=== PATIENT | female | born 1960 | race Caucasian/White ===

== ENCOUNTER 2018-05-29 17:41 | Inpatient (IN) | payer SELFPAY ==
[~2018-05-29] VITALS: Ht 152.4 cm; Wt 89.4 kg
[2018-05-29 18:50] VITALS: BP 129/78
[2018-05-29 20:00] VITALS: BP 129/78
[2018-05-29] MEDS ORDERED: METHIMAZOLE10 MG PO (20:34)
[2018-05-29] MEDS ORDERED: LEXAPRO10 MG PO (20:34)
[2018-05-29] MEDS ORDERED: GABAPENTIN100 MG PO (20:34)
[2018-05-29] MEDS ORDERED: VASOTEC10 M1 PO (20:34)
[2018-05-29] MEDS ORDERED: SODIUM CHLORIDE 0.9% 50ML 50 ML ONE (20:50)
[2018-05-29] MEDS ORDERED: SODIUM CHLORIDE 0.9% 250ML 250 ML ONE ×2 (20:51→22:02)
[2018-05-29] MEDS: CEFTRIAXONE SOD 1 GM VIAL IV SCH (21:00)
[2018-05-29] MEDS ORDERED: ACETAMINOPHEN 325 MG TAB PO PRN ×2 (21:45→22:00)
[2018-05-29] MEDS ORDERED: LORAZEPAM INJ 2 MG/ML VIAL IV PRN (21:45)
[2018-05-29] MEDS: ACETAMINOPHEN 325 MG TAB PO PRN (22:13)
[2018-05-29] MEDS: SODIUM CHLORIDE 0.9% 1000ML 1,000 ML IV SCH (22:25)
[2018-05-29] MEDS: ONDANSETRON HCL INJ 2 MG/ML VIAL IV PRN (22:25)
[2018-05-29] MEDS: MORPHINE SULFATE INJ 4 MG/ML INJ IV PRN (22:25)
[2018-05-29] MEDS: AZITHROMYCIN 500MG/NS 250 ML 250 ML IV SCH (22:28)
[2018-05-30] VITALS (8 sets, daily range): BP systolic 95–168; BP diastolic 52–80
[2018-05-30] MEDS: MORPHINE SULFATE INJ 4 MG/ML INJ IV PRN ×5 (02:35→21:21)
[2018-05-30] MEDS: ONDANSETRON HCL INJ 2 MG/ML VIAL IV PRN ×5 (02:38→21:21)
--- NOTE | 2018-05-30 05:45 | Diagnostic Imaging Report ---
EXAM: CHEST SINGLE (PORTABLE), AP 1 view INDICATION: Pneumonia COMPARISON: None FINDINGS: LINES/TUBES: None LUNGS: No consolidations or edema. PLEURA: No effusions or pneumothorax. HEART AND MEDIASTINUM: Normal size and contour. BONES AND SOFT TISSUES: No acute findings. IMPRESSION: No acute thoracic abnormality. Signed by: Dr. Mikayla Bray M.D. on 05/30/2018 5:42 AM
[2018-05-30 05:59] LABS: BASOPHILS % 0.2 % (0.0-1.0); HEMATOCRIT 25.6 % (34.2-44.1); LYMPHOCYTES % 18.5 % (18.0-39.1); MEAN CORPUSCULAR HGB CONC 35.2 g/dL (31-35); MEAN CORPUSCULAR VOLUME 85.3 fL (81-99); MONOCYTES # (AUTO) 0.3 (0.2-0.8); NEUTROPHILS # (AUTO) 4.1 (2.1-6.9); NEUTROPHILS % 74.9 % (38.7-80.0); PLATELET COUNT 124 x10e3/uL (140-360); RED CELL DISTRIBUTION WIDTH 12.6 % (11.7-14.4)
[2018-05-30 06:28] LABS: ALANINE AMINOTRANSFERASE 65 IU/L (0-55); ALBUMIN 2.5 g/dL (3.5-5.0); ALBUMIN/GLOBULIN RATIO 0.9 (0.8-2.0); ALKALINE PHOSPHATASE 99 IU/L (40-150); ANION GAP 13.5 mmol/L (8-16); BLOOD UREA NITROGEN 10 mg/dL (7-26); BUN/CREATININE RATIO 14 (6-25); CARBON DIOXIDE 26 mmol/L (22-29); CHLORIDE 99 mmol/L (98-107); CREATININE, SERUM 0.69 mg/dL (0.57-1.11); EST GLOMERULAR FILTRATION RATE > 60 ML/MIN (60-); GLUCOSE 121 mg/dL (74-118); POTASSIUM 3.5 mmol/L (3.5-5.1); SODIUM 135 mmol/L (136-145)
[2018-05-30] MEDS: ALBUTEROL/IPRATROPIUM 3 ML NEB NEB SCH ×4 (07:00→19:00)
[2018-05-30 07:36] LABS: BAND NEUTROPHILS % (MANUAL) 25 %; LYMPHOCYTES % (MANUAL) 11 % (19-48); MONOCYTES % (MANUAL) 6 % (3.4-9.0); NEUTROPHILS % (MANUAL) 56 % (40-74)
[2018-05-30 07:37] LABS: PLATELET ESTIMATE SLIGHTLY DECREASED; TOXIC GRANULATION MODERATE
[2018-05-30 07:39] LABS: ANISOCYTOSIS SLIGHT; PLATELET MORPHOLOGY COMMENT NORMAL; VACUOLE,WBC SLIGHT
[2018-05-30 07:52] LABS: RBC MORPHOLOGY COMMENT NORMAL
[2018-05-30] MEDS ORDERED: METHIMAZOLE 10 MG PO SCH (09:00)
[2018-05-30] MEDS: ESCITALOPRAM OXALATE 10 MG TAB PO SCH (09:29)
[2018-05-30] MEDS: METHIMAZOLE 5 MG TAB PO SCH (09:29)
[2018-05-30] MEDS: GABAPENTIN 100 MG CAP PO SCH (09:29)
[2018-05-30] MEDS: SODIUM CHLORIDE 0.9% 1000ML 1,000 ML IV SCH ×2 (09:30→21:21)
[2018-05-30] MEDS: ENALAPRIL MALEATE 10 MG TAB PO SCH ×2 (09:30→17:35)
[2018-05-30] MEDS: ACETAMINOPHEN 325 MG TAB PO PRN ×2 (09:45→22:49)
[2018-05-30] MEDS: AZITHROMYCIN 500MG/NS 250 ML 250 ML IV SCH (21:21)
[2018-05-31] VITALS (7 sets, daily range): BP systolic 98–169; BP diastolic 55–76
[2018-05-31] MEDS: MORPHINE SULFATE INJ 4 MG/ML INJ IV PRN ×5 (01:56→20:20)
[2018-05-31] MEDS: ONDANSETRON HCL INJ 2 MG/ML VIAL IV PRN ×5 (01:56→20:20)
[2018-05-31] MEDS: ALBUTEROL/IPRATROPIUM 3 ML NEB NEB SCH ×5 (06:40→23:20)
[2018-05-31] MEDS: SODIUM CHLORIDE 0.9% 1000ML 1,000 ML IV SCH ×3 (07:52→20:15)
[2018-05-31] MEDS: GABAPENTIN 100 MG CAP PO SCH (09:13)
[2018-05-31] MEDS: ESCITALOPRAM OXALATE 10 MG TAB PO SCH (09:13)
[2018-05-31] MEDS: METHIMAZOLE 5 MG TAB PO SCH (09:13)
[2018-05-31] MEDS: ENALAPRIL MALEATE 10 MG TAB PO SCH ×2 (09:14→17:00)
[2018-05-31] MEDS: ACETAMINOPHEN 325 MG TAB PO PRN (11:15)
--- NOTE | 2018-05-31 16:58 | Progress Note ---
DATE: INTERNAL MEDICINE PROGRESS NOTE SUBJECTIVE: Patient is complaining of fever. PHYSICAL EXAM VITAL SIGNS: Blood pressure 169/76, temperature 102.7, heart rate 131 per minute, respiratory rate 17 per minute, and oxygen saturation 95%. HEART: Regular rhythm. Normal S1 and S2 sounds. LUNGS: Clear bilaterally. ABDOMEN: Soft. LABORATORY DATA: On the blood work, we have BMP. Sodium 135, potassium 3.5, chloride 99, CO2 of 26, BUN 10, creatinine 0.69, glucose 121. On the CBC; white blood count 5.47, hemoglobin 9.0, hematocrit 25.6, and platelet count 184,000. AST 115, ALT 65, total bilirubin 1.1, alkaline phosphatase 99. FINAL IMPRESSION 1. Pneumonia. 2. Tachycardia secondary to fever. 3. Anemia. PLAN OF TREATMENT: Continue albuterol and Atrovent q.6 hours, Zithromax 250 mg IV once a day. Continue IV fluids at 100 mL an hour, ceftriaxone 1 gram IV once a day, Tylenol 975 mg p.o. q.6 hours as needed for fever, methimazole 10 mg daily, lorazepam 0.5 mg q.6 hours as needed for anxiety, enalapril 20 mg twice a day, morphine 4 mg IV q.4 hours, citalopram 10 mg daily, Zofran 4 mg IV q.4 hours, gabapentin 100 mg daily. He is going to be started on metoprolol 25 mg twice a day because of the tachycardia. Blood culture and urine culture have been ordered. Job#: [id number] DASIA
[2018-05-31] MEDS ORDERED: DIPHENHYDRAMINE HCL 25 MG CAP PO PRN (17:00)
[2018-05-31] MEDS: METOPROLOL TARTRATE 25 MG TAB PO SCH (17:23)
[2018-05-31] MEDS: CEFTRIAXONE SOD 1 GM VIAL IV SCH (20:12)
[2018-05-31] MEDS: AZITHROMYCIN 500MG/NS 250 ML 250 ML IV SCH (21:43)
[2018-06-01] VITALS (8 sets, daily range): BP systolic 109–159; BP diastolic 55–81
[2018-06-01] MEDS: ONDANSETRON HCL INJ 2 MG/ML VIAL IV PRN ×6 (00:20→21:20)
[2018-06-01] MEDS: MORPHINE SULFATE INJ 4 MG/ML INJ IV PRN ×5 (00:20→21:20)
[2018-06-01 01:02] LABS: CLARITY,URINE CLEAR (CLEAR); COLOR,URINE YELLOW (YELLOW)
[2018-06-01 01:03] LABS: BACTERIA,URINE RARE /HPF; BILIRUBIN,URINE NEGATIVE (NEGATIVE); EPITHELIAL CELLS,URINE FEW /LPF; KETONES,URINE NEGATIVE (NEGATIVE); LEUKOCYTE ESTERASE ,URINE NEGATIVE (NEGATIVE); NITRITE,URINE NEGATIVE (NEGATIVE); PROTEIN,URINE DIPSTICK TRACE (NEGATIVE); RBC,URINE 0-5 /HPF (0-5); URINE UROBILINOGEN 1 mg/dL (0.2 - 1); WBC,URINE (MAN) 0-5 /HPF (0-5)
[2018-06-01] MEDS: ACETAMINOPHEN 325 MG TAB PO PRN ×2 (04:32→19:39)
[2018-06-01 05:45] LABS: ANION GAP 12.9 mmol/L (8-16); BLOOD UREA NITROGEN 7 mg/dL (7-26); BUN/CREATININE RATIO 11 (6-25); CALCIUM 7.7 mg/dL (8.4-10.2); CARBON DIOXIDE 24 mmol/L (22-29); CHLORIDE 100 mmol/L (98-107); CREATININE, SERUM 0.66 mg/dL (0.57-1.11); EST GLOMERULAR FILTRATION RATE > 60 ML/MIN (60-); GLUCOSE 115 mg/dL (74-118); SODIUM 134 mmol/L (136-145)
[2018-06-01 05:46] LABS: POTASSIUM 2.9 mmol/L (3.5-5.1)
[2018-06-01] MEDS ORDERED: POTASSIUM CHLORIDE 20 MEQ TAB CR PO STA (06:28)
[2018-06-01] MEDS: ALBUTEROL/IPRATROPIUM 3 ML NEB NEB SCH ×4 (07:30→23:25)
[2018-06-01] MEDS ORDERED: POTASSIUM CHLORIDE 20 MEQ TAB CR PO SCH (07:30)
[2018-06-01] MEDS: ENALAPRIL MALEATE 10 MG TAB PO SCH ×2 (09:00→17:45)
[2018-06-01] MEDS: METOPROLOL TARTRATE 25 MG TAB PO SCH ×2 (09:18→17:45)
[2018-06-01] MEDS: GABAPENTIN 100 MG CAP PO SCH (09:18)
[2018-06-01] MEDS: METHIMAZOLE 5 MG TAB PO SCH (09:18)
[2018-06-01] MEDS: ESCITALOPRAM OXALATE 10 MG TAB PO SCH (09:18)
[2018-06-01] MEDS: SODIUM CHLORIDE 0.9% 1000ML 1,000 ML IV SCH (09:45)
[2018-06-01] MEDS ORDERED: LORAZEPAM 0.5 MG TAB PO PRN (13:15)
--- NOTE | 2018-06-01 13:43 | Progress Note ---
DATE: INTERNAL MEDICINE PROGRESS NOTE SUBJECTIVE: Patient is not feeling well, feeling tired and sleepy today. Not have significant complaints. PHYSICAL EXAM HEART: Regular rhythm. Normal S1, S2 sounds. LUNGS: Clear bilaterally. ABDOMEN: Soft. FINAL IMPRESSION 1. Lower pneumonia. 2. Hypertension. 3. Anemia. 4. Hypokalemia. PLAN OF TREATMENT: Potassium has been replaced. We are going to recheck his potassium level today. Continue albuterol and Atrovent q.6 hours, Zithromax 250 mg IV once a day. Continue sodium chloride 100 mL an hour, ceftriaxone 1 gram IV daily, Tylenol 975 mg q.6 hours, methimazole 10 mg daily, lorazepam 0.5 mg q.6 hours as needed, enalapril 20 mg twice a day, metoprolol 25 mg twice a day, morphine 4 mg IV q.4 hours as needed, citalopram 10 mg daily, Benadryl 25 mg q.4 hours as needed for itching, Zofran 4 mg IV q.4 as needed for nausea and vomiting, gabapentin 800 mg daily. Potassium chloride has been replaced. We are going to recheck the potassium level today. Job#: [id number] DASIA
[2018-06-01 19:08] LABS: ANION GAP 13.6 mmol/L (8-16); BLOOD UREA NITROGEN 7 mg/dL (7-26); BUN/CREATININE RATIO 10 (6-25); CALCIUM 8.1 mg/dL (8.4-10.2); CARBON DIOXIDE 26 mmol/L (22-29); CHLORIDE 102 mmol/L (98-107); CREATININE, SERUM 0.72 mg/dL (0.57-1.11); EST GLOMERULAR FILTRATION RATE > 60 ML/MIN (60-); GLUCOSE 100 mg/dL (74-118); POTASSIUM 3.6 mmol/L (3.5-5.1); SODIUM 138 mmol/L (136-145)
[2018-06-01] MEDS: CEFTRIAXONE SOD 1 GM VIAL IV SCH (19:39)
[2018-06-01] MEDS: AZITHROMYCIN 500MG/NS 250 ML 250 ML IV SCH (21:04)
[2018-06-02] VITALS: BP 124/60
[2018-06-02] MEDS: ALBUTEROL/IPRATROPIUM 3 ML NEB NEB SCH ×2 (06:47→19:30)
[2018-06-02 07:58] VITALS: BP 129/65
[2018-06-02] MEDS: ENALAPRIL MALEATE 10 MG TAB PO SCH ×2 (07:59→16:57)
[2018-06-02] MEDS: METHIMAZOLE 5 MG TAB PO SCH (07:59)
[2018-06-02] MEDS: METOPROLOL TARTRATE 25 MG TAB PO SCH ×2 (07:59→16:57)
[2018-06-02] MEDS: GABAPENTIN 100 MG CAP PO SCH (07:59)
[2018-06-02] MEDS: ESCITALOPRAM OXALATE 10 MG TAB PO SCH (07:59)
[2018-06-02 08:00] VITALS: BP 129/65
[2018-06-02] MEDS: MORPHINE SULFATE INJ 4 MG/ML INJ IV PRN ×3 (08:00→21:10)
[2018-06-02] MEDS: ONDANSETRON HCL INJ 2 MG/ML VIAL IV PRN ×3 (08:00→21:10)
[2018-06-02] MEDS ORDERED: ALBUTEROL/IPRATROPIUM 3 ML NEB NEB SCH ×2 (10:00→11:00)
[2018-06-02 12:02] VITALS: BP 113/62
[2018-06-02 16:20] VITALS: BP 130/69
[2018-06-02] MEDS ORDERED: SODIUM CHLORIDE 0.9% 50ML 50 ML ONE (19:57)
[2018-06-02 20:00] VITALS: BP 151/67
[2018-06-02] MEDS: CEFTRIAXONE SOD 1 GM VIAL IV SCH (20:30)
[2018-06-02] MEDS: AZITHROMYCIN 500MG/NS 250 ML 250 ML IV SCH (21:20)
[2018-06-03] VITALS: BP 140/64
[2018-06-03] MEDS: ALBUTEROL/IPRATROPIUM 3 ML NEB NEB SCH ×3 (01:05→12:00)
[2018-06-03 04:00] VITALS: BP 155/68
[2018-06-03] MEDS: MORPHINE SULFATE INJ 4 MG/ML INJ IV PRN ×2 (04:40→11:00)
[2018-06-03] MEDS: ONDANSETRON HCL INJ 2 MG/ML VIAL IV PRN ×2 (04:40→11:00)
[2018-06-03 05:37] LABS: BASOPHILS % 0.3 % (0.0-1.0); EOSINOPHILS % 0.5 % (0.0-6.0); HEMATOCRIT 23.8 % (34.2-44.1); HEMOGLOBIN 8.1 g/dL (12.0-16.0); LYMPHOCYTES # (AUTO) 2.9 (1.0-3.2); LYMPHOCYTES % 38.5 % (18.0-39.1); MEAN CORPUSCULAR HEMOGLOBIN 29.9 pg (28-32); MEAN CORPUSCULAR VOLUME 87.8 fL (81-99); MONOCYTES # (AUTO) 0.3 (0.2-0.8); MONOCYTES % 4.2 % (4.4-11.3); NEUTROPHILS # (AUTO) 4.2 (2.1-6.9); NEUTROPHILS % 55.4 % (38.7-80.0); PLATELET COUNT 232 x10e3/uL (140-360); RED BLOOD COUNT 2.71 x10e6/uL (3.6-5.1); RED CELL DISTRIBUTION WIDTH 13.6 % (11.7-14.4)
[2018-06-03 05:58] LABS: ANION GAP 10.2 mmol/L (8-16); BLOOD UREA NITROGEN < 5 mg/dL (7-26); BUN/CREATININE RATIO 7 (6-25); CALCIUM 8.7 mg/dL (8.4-10.2); CARBON DIOXIDE 29 mmol/L (22-29); CHLORIDE 99 mmol/L (98-107); CREATININE, SERUM 0.69 mg/dL (0.57-1.11); EST GLOMERULAR FILTRATION RATE > 60 ML/MIN (60-); GLUCOSE 117 mg/dL (74-118); POTASSIUM 3.2 mmol/L (3.5-5.1); SODIUM 135 mmol/L (136-145)
--- NOTE | 2018-06-03 06:29 | Diagnostic Imaging Report ---
EXAMINATION: CHEST 2 VIEWS INDICATION: Shortness of breath. COMPARISON: None FINDINGS: PA and lateral views TUBES and LINES: None. LUNGS/PLEURA: Lungs are well inflated. Blunting of the left costophrenic sulcus with adjacent left lower lobe opacity. Mild right basilar atelectasis. No pneumothorax. HEART AND MEDIASTINUM: The cardiomediastinal silhouette is unremarkable. BONES AND SOFT TISSUES: No acute osseous lesion. Soft tissues are unremarkable. UPPER ABDOMEN: No free air under the diaphragm. IMPRESSION: Small left pleural effusion with adjacent atelectasis, new from 05/30/2018. Superimposed infection not excluded. Signed by: DR. Arnold Orellana MD on 06/03/2018 6:26 AM
[2018-06-03 08:19] VITALS: BP 152/84
[2018-06-03 08:55] VITALS: BP 152/84
[2018-06-03] MEDS: METOPROLOL TARTRATE 25 MG TAB PO SCH (08:56)
[2018-06-03] MEDS: METHIMAZOLE 5 MG TAB PO SCH (08:56)
[2018-06-03] MEDS: ENALAPRIL MALEATE 10 MG TAB PO SCH (08:56)
[2018-06-03] MEDS: ESCITALOPRAM OXALATE 10 MG TAB PO SCH (08:56)
[2018-06-03] MEDS: GABAPENTIN 100 MG CAP PO SCH (08:56)
[2018-06-03] MEDS ORDERED: POTASSIUM CHLORIDE 20 MEQ TAB CR PO ONE (11:00)
[2018-06-03 12:03] VITALS: BP 152/79
[2018-06-03] MEDS ORDERED: KEFLEX500 MG PO (13:57)
== END 2018-06-03 14:15 | disposition home or self-care (01) | DRG 871 ==
LOC: MED/SURG3 18:38
DX: A41.9 Sepsis, unspecified organism (principal); J18.9 Pneumonia, unspecified organism; J69.0 Pneumonitis due to inhalation of food and vomit; R00.0 Tachycardia, unspecified; D64.9 Anemia, unspecified; E87.6 Hypokalemia; F32.9 Major depressive disorder, single episode, unspecified
CPT/HCPCS: 36415; 71045; 71046; 80048; 80053; 81001; 85025; 87040; 87086; 94640; J0456; J0696; J2270; J2405; J7030; J7050